=== PATIENT | male | born 1970 | race Caucasian/White ===

== ENCOUNTER 2017-04-04 12:58 | Inpatient (IN) | payer MEDICAID ==
[~2017-04-04] VITALS: Ht 170.2 cm; Wt 88.5 kg
[2017-04-04 13:44] VITALS: BP_SYST 154
[2017-04-04 13:54] LABS: BASOPHILS % (AUTO) 0.3 % (0.0-2.0); EOSINOPHILS # (AUTO) 0.2 K/uL (0.0-0.4); EOSINOPHILS % (AUTO) 2.1 % (0.0-4.0); HEMATOCRIT 48.2 % (36-54); LYMPHOCYTES # (AUTO) 1.3 K/uL (1.0-5.5); LYMPHOCYTES % (AUTO) 15.1 % (20.5-51.5); MEAN CORPUSCULAR HEMOGLOBIN 28 pg (27-31); MEAN CORPUSCULAR HGB CONC 33 % (32-36); MEAN CORPUSCULAR VOLUME 86 fL (79.0-98.0); MONOCYTES # (AUTO) 0.8 K/uL (0.0-1.0); MONOCYTES % (AUTO) 9.9 % (1.7-9.3); NEUTROPHILS # (AUTO) 6.2 K/uL (1.8-7.7); NEUTROPHILS % (AUTO) 72.6 % (40.0-70.0); PLATELET COUNT (AUTO) 191 K/uL (130-430); RED BLOOD CELL COUNT(AUTO) 5.62 MIL/uL (4.2-6.2); RED CELL DISTRIBUTION WIDTH 11.9 % (9.0-15.0); WHITE BLOOD COUNT (AUTO) 8.5 K/uL (4.8-10.8)
[2017-04-04 14:06] LABS: CALCIUM 8.7 mg/dL (8.4-11.0); CREATININE 1.25 mg/dL (0.55-1.30); POTASSIUM 4.2 mmol/L (3.5-5.1)
[2017-04-04 14:11] LABS: ALBUMIN 4.4 g/dL (3.4-4.8); TOTAL BILIRUBIN 0.9 mg/dL (0.0-1.0)
[2017-04-04] MEDS ORDERED: NACL 0.9% 1,000 ML IV ONE (14:15)
[2017-04-04] MEDS ORDERED: KETOROLAC TROMETHAMINE 30 MG VIAL IVP ONE (14:15)
[2017-04-04] MEDS ORDERED: ONDANSETRON HCL 4 MG/2 ML VIAL IVP ONE (14:15)
[2017-04-04] MEDS ORDERED: DIPHENHYDRAMINE INJ 50 MG/ML VIAL IVP ONE (14:45)
[2017-04-04 14:46] LABS: BILIRUBIN,URINE NEGATIVE (NEGATIVE); BLOOD, URINE 2+ (NEGATIVE); CLARITY/URINE HAZY (CLEAR); COLOR,URINE YELLOW (YELLOW); GLUCOSE,URINE NEGATIVE (NEGATIVE); KETONES,URINE NEGATIVE (NEGATIVE); LEUKOCYTE ESTERASE ,URINE NEGATIVE (NEGATIVE); NITRITE, URINE NEGATIVE (NEGATIVE); PROTEIN URINE NEGATIVE (NEGATIVE); UROBILINOGEN,URINE 0.2 (0.2-1.0)
[2017-04-04 14:57] LABS: BACTERIA,URINE MODERATE /HPF (None Seen)
[2017-04-04 15:00] LABS: MUCUS,URINE 1+ /LPF (None Seen); URINE AMORPHOUS URATE 2+ /HPF (None Seen)
[2017-04-04] MEDS ORDERED: MORPHINE SULFATE 10 MG/ML VIAL IVP ONE (15:30)
[2017-04-04] MEDS ORDERED: MORPHINE 2 MG/ML INJ. SYRINGE IVP PRN (16:45)
[2017-04-04] MEDS ORDERED: ONDANSETRON HCL 4 MG/2 ML VIAL IVP PRN (16:45)
[2017-04-04 17:20] LABS: FREE T4 (FREE THYROXINE) 0.7 ng/dL (0.6-1.6); THYROID STIMULATING HORMONE 1.06 uIu/mL (0.34-4.82)
[2017-04-04 17:41] VITALS: BP_SYST 152
[2017-04-04 20:00] VITALS: BP_SYST 165
[2017-04-04] MEDS ORDERED: hydrALAZINE HCL 20 MG/ML VIAL IVP PRN (20:15)
[2017-04-04] MEDS ORDERED: PROMETHAZINE HCL 25 MG/ML AMP IVP PRN (20:15)
[2017-04-04] MEDS: MORPHINE 2 MG/ML INJ. SYRINGE IVP PRN (21:56)
[2017-04-04] MEDS: DOCUSATE SODIUM 100 MG CAPSULE PO SCH (22:16)
[2017-04-05 00:38] VITALS: BP_SYST 150
[2017-04-05] MEDS: NACL 0.9% 1,000 ML IV SCH ×4 (02:01→23:00)
[2017-04-05 05:02] VITALS: BP_SYST 143
[2017-04-05] MEDS: ACETAMINOPHEN 325 MG TABLET PO PRN ×2 (05:42→09:46)
[2017-04-05 06:49] LABS: ALBUMIN 3.6 g/dL (3.4-4.8); CALCIUM 8.1 mg/dL (8.4-11.0); CREATININE 0.9 mg/dL (0.55-1.30); POTASSIUM 3.6 mmol/L (3.5-5.1); TOTAL BILIRUBIN 0.9 mg/dL (0.0-1.0)
[2017-04-05 07:27] LABS: BASOPHILS % (AUTO) 0.5 % (0.0-2.0); EOSINOPHILS # (AUTO) 0.2 K/uL (0.0-0.4); EOSINOPHILS % (AUTO) 3.4 % (0.0-4.0); HEMOGLOBIN 14.3 g/dL (14.0-18.0); MEAN CORPUSCULAR HEMOGLOBIN 29 pg (27-31); MEAN CORPUSCULAR HGB CONC 34 % (32-36); MEAN CORPUSCULAR VOLUME 86 fL (79.0-98.0); MONOCYTES # (AUTO) 0.6 K/uL (0.0-1.0); MONOCYTES % (AUTO) 9.3 % (1.7-9.3); NEUTROPHILS % (AUTO) 71.8 % (40.0-70.0); PLATELET COUNT (AUTO) 170 K/uL (130-430); RED BLOOD CELL COUNT(AUTO) 4.86 MIL/uL (4.2-6.2); WHITE BLOOD COUNT (AUTO) 6.8 K/uL (4.8-10.8)
[2017-04-05 08:00] VITALS: BP_SYST 144
[2017-04-05] MEDS: DOCUSATE SODIUM 100 MG CAPSULE PO SCH ×2 (08:36→22:59)
[2017-04-05] MEDS: TAMSULOSIN HCL 0.4 MG CAP PO SCH (08:36)
[2017-04-05] MEDS: SIMETHICONE 80 MG TAB.CHEW PO SCH ×3 (09:45→22:58)
[2017-04-05] MEDS ORDERED: BISACODYL 10 MG/SUPPOSITORY RC PRN (09:45)
[2017-04-05] MEDS ORDERED: LORazepam 2 MG/ML VIAL IVP PRN (09:45)
[2017-04-05] MEDS ORDERED: ZOLPIDEM TARTRATE 5 MG TABLET PO PRN (09:45)
[2017-04-05] MEDS ORDERED: POTASSIUM CHLORIDE 20 MEQ TAB.PRT.SR PO PRN (09:45)
[2017-04-05 13:00] VITALS: BP_SYST 138
[2017-04-05] MEDS: HYDROcodone/ACETAMIN 10-325 MG TAB PO PRN ×2 (13:06→23:51)
[2017-04-05] MEDS: KETOROLAC TROMETHAMINE 30 MG VIAL IVP SCH ×3 (15:00→23:52)
[2017-04-05] MEDS: MORPHINE 2 MG/ML INJ. SYRINGE IVP PRN (15:30)
[2017-04-05 16:26] VITALS: BP_SYST 140
[2017-04-05 20:00] VITALS: BP_SYST 139
[2017-04-05] MEDS ORDERED: MILK OF MAGNESIA 30 ML UDC PO ONE (20:15)
[2017-04-05] MEDS ORDERED: MILK OF MAGNESIA 30 ML UDC PO PRN (20:15)
[2017-04-05] MEDS: LACTULOSE 20 GM/30 ML UDC PO SCH ×2 (21:00→22:58)
[2017-04-06 00:29] VITALS: BP_SYST 146
[2017-04-06 05:53] VITALS: BP_SYST 142
[2017-04-06 06:07] LABS: HEMOGLOBIN A1C 5.1 % (4.8-5.6)
[2017-04-06] MEDS: KETOROLAC TROMETHAMINE 30 MG VIAL IVP SCH ×2 (06:15→12:00)
[2017-04-06] MEDS: NACL 0.9% 1,000 ML IV SCH ×2 (06:15→10:44)
[2017-04-06 06:21] LABS: BASOPHILS % (AUTO) 0.5 % (0.0-2.0); EOSINOPHILS # (AUTO) 0.5 K/uL (0.0-0.4); EOSINOPHILS % (AUTO) 7.9 % (0.0-4.0); HEMATOCRIT 39.5 % (36-54); HEMOGLOBIN 13.4 g/dL (14.0-18.0); LYMPHOCYTES # (AUTO) 1.5 K/uL (1.0-5.5); LYMPHOCYTES % (AUTO) 27.1 % (20.5-51.5); MEAN CORPUSCULAR HEMOGLOBIN 29 pg (27-31); MEAN CORPUSCULAR HGB CONC 34 % (32-36); MEAN CORPUSCULAR VOLUME 86 fL (79.0-98.0); MONOCYTES # (AUTO) 0.6 K/uL (0.0-1.0); MONOCYTES % (AUTO) 10.7 % (1.7-9.3); NEUTROPHILS # (AUTO) 3.1 K/uL (1.8-7.7); NEUTROPHILS % (AUTO) 53.8 % (40.0-70.0); PLATELET COUNT (AUTO) 161 K/uL (130-430); RED BLOOD CELL COUNT(AUTO) 4.58 MIL/uL (4.2-6.2); RED CELL DISTRIBUTION WIDTH 11.8 % (9.0-15.0); WHITE BLOOD COUNT (AUTO) 5.7 K/uL (4.8-10.8)
[2017-04-06 06:32] LABS: CALCIUM 7.7 mg/dL (8.4-11.0); CREATININE 0.87 mg/dL (0.55-1.30); PHOSPHORUS 3.7 mg/dL (2.7-4.5); POTASSIUM 3.5 mmol/L (3.5-5.1)
[2017-04-06 07:42] VITALS: BP_SYST 151
[2017-04-06 08:06] LABS: T4 (THYROXINE) 6.4 ug/dL (4.5-12.0)
[2017-04-06] MEDS: LACTULOSE 20 GM/30 ML UDC PO SCH ×2 (08:36→08:37)
[2017-04-06] MEDS: DOCUSATE SODIUM 100 MG CAPSULE PO SCH (09:00)
[2017-04-06] MEDS: TAMSULOSIN HCL 0.4 MG CAP PO SCH (10:27)
[2017-04-06] MEDS: SIMETHICONE 80 MG TAB.CHEW PO SCH (10:27)
[2017-04-06] MEDS ORDERED: CIPR-211 PO (11:05)
[2017-04-06 11:22] VITALS: BP_SYST 151
[2017-04-06 12:18] VITALS: BP_SYST 139
[2017-04-06] MEDS ORDERED: TAMS-11 PO (12:46)
[2017-04-06] MEDS ORDERED: TORI15 IJ (12:46)
[2017-04-06] MEDS ORDERED: KETO10TA2 PO (12:56)
[2017-04-07 08:07] LABS: % FREE PSA 35.3 % (.); FREE PSA 0.67 ng/mL; PROSTATE SPECIFIC AG TOTAL 1.9 ng/mL (0.0-4.0)
== END 2017-04-06 13:00 | disposition home or self-care (01) | DRG 465 ==
LOC: SED 12:58 → STU 16:41 → SMU 04-05 18:26
PROVIDERS: ADMIT Family Medicine; ATTEND Family Medicine
DX: N13.2 Hydronephrosis with renal and ureteral calculous obstruction (principal); N39.0 Urinary tract infection, site not specified; K59.00 Constipation, unspecified; R91.1 Solitary pulmonary nodule; N13.6 Pyonephrosis; Z88.8 Allergy status to other drugs, medicaments and biological substances
CPT/HCPCS: 36415; 80048; 80053; 80061; 81000-TC; 82150-TC; 83036; 83605; 83690-TC; 83735-TC; 83880; 84100-TC; 84153; 84436; 84439; 84443-TC; 84479; 85025; 87040-TC; 87086; 96361; 96374; 96375; 99285; J0360; J1200; J1885; J1956; J2270; J2405; J7030